=== PATIENT | male | born 2000 ===

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

== ENCOUNTER 2022-07-29 16:49 | Emergency (ER) | payer OTHER, SELFPAY ==
[2022-07-29 17:07] VITALS: BP 117/65; PULSE 70; RESP 18; TEMP 36.6; O2SAT 99; BMI 28.1
[2022-07-29 17:15] LABS: MANUAL DIFF FLAG NO
[2022-07-29 17:17] LABS: Basophils Absolute Auto 0.1 X10*3/uL (0.0-0.2); Basophils Percent Auto 0.8 % (0-2); Eosinophils Absolute Auto 0.5 X10*3/uL (0.0-0.4); Eosinophils Percent Auto 7.2 % (0-4); Hematocrit 44.1 % (42.0-52.0); Hemoglobin 14.9 g/dl (14.0-18.0); Imm Gran Abs Auto 0.01 X10*3/uL (0.00-0.03); Imm Gran Pct Auto 0.2 % (0.0-0.4); Lymphocytes Absolute Auto 2.1 X10*3/uL (1.2-4.9); Lymphocytes Percent Auto 34.4 % (20-40); Mean Corpuscular HGB Conc 33.8 g/dl (31.0-36.0); Mean Corpuscular Hemoglobin 29.7 pg (27.0-33.0); Monocytes Absolute Auto 0.4 X10*3/uL (0.1-1.2); Monocytes Percent Auto 6.4 % (2-11); Neutrophils Absolute Auto 3.2 x10*3/uL (2.0-8.3); Platelet Count 212 X10*3/uL (160-400); Red Blood Count 5.01 X10*6/uL (4.60-5.80); Red Cell Distribution Width 12.4 % (11.0-16.0); White Blood Count 6.2 X10*3/uL (4.8-10.8)
[2022-07-29 17:42] LABS: Alanine Aminotransferase 18 U/L (0-40); Albumin Level 4.5 g/dL (3.5-5.0); Alkaline Phosphatase 61 U/L (39-117); Anion Gap 13 (12-20); Aspartate Amino Transferase 21 U/L (5-37); Bilirubin Direct 0.3 mg/dL (0.0-0.5); Bilirubin Total 0.6 mg/dL (0.0-1.0); Blood Urea Nitrogen 14 mg/dL (9-16); Calcium 9.5 mg/dL (8.4-10.2); Carbon Dioxide 29 mmol/L (22-29); Chloride 105 mmol/L (96-108); Creatinine Clr Calc Pharmacy 98.7; Estimated Glomerular Filt Rate > 60; Glucose Random 111 mg/dL (60-115); Lipase 36 U/L (8-78); Sodium 143 mmol/L (135-145); Total Protein 7.1 g/dL (6.5-8.0)
--- NOTE | 2022-07-29 23:13 | ED_ITS ---
HPI - GI Bleed General Chief complaint: GI Bleed Stated complaint: ? rectal bleeding ? blood in stool Time Seen by Provider: 07/29/22 22:53 Source: patient Mode of arrival: ambulatory Limitations: no limitations History of Present Illness HPI Narrative: 22-year-old male who presents emergency department for evaluation of rectal bleeding. The patient states that after bowel movements he noticed dark red blood sometimes in the bowels and sometimes in the toilet bowl. He states that this is been going on for 1 week and happens after bowel movements only. He denies constipation. Denies any pain with his bowel movements. He states he does have some pressure in his tailbone region which is mild to moderate in intensity He states he has not been straining to have a bowel movement. He has a bowel movement once a day. He has not had any diarrhea, abdominal pain, fever, night sweats, weight loss. He does not have a history of hemorrhoids for lower GI bleeding. He is unaware of any family history of inflammatory bowel disease or GI cancers. MD complaint: blood streaked stool and gross hematochezia Onset (ago): week(s) (1) Pain Consistency: intermittent (Tailbone pressure) Severity: mild Relieving factors: none Exacerbating factors: none Treatments Prior to Arrival: none Related Data Allergies Allergy/AdvReac Type Severity Reaction Status Date / Time No Known Allergies Allergy Unverified 06/14/20 17:02 [No Known Allergies*] Review of Systems Review of Systems: Yes all other systems are reviewed and are negative [facility] Past Medical History [facility] Narrative: Past medical history: None. Past surgical history: None. Social history: He denies tobacco use. He states that he occasionally drinks alcohol. He smokes marijuana every 2-3 days. Social History Social History Advance Directives: No Advance Directives Information Provided: No Physical Exam Vital Signs: Vital Signs: Last Vital Signs Temp 97.9 F 07/29/22 17:07 Pulse 70 07/29/22 17:07 Resp 18 07/29/22 17:07 BP 117/65 07/29/22 17:07 Pulse Ox 99 07/29/22 17:07 O2 Del Method 07/29/22 17:07 BMI result Body Mass Index 28.1 Const: General: cooperative and no acute distress Orientation/consciousness: oriented to person and oriented to place Limitations: no limitations HEENT: Head: Yes normal to inspection, Yes normocephalic and Yes atraumatic Ears: external ears normal General nose exam: Normal external nose present Face and sinus: Yes normal facial exam Mouth: Normal oral and palatal mucosa present Throat: Yes posterior oropharynx normal Eyes: General: appearance normal, both eyes and all related structures Pupils: Equal, round and reactive pupils present Neck: Neck: Yes normal visual inspection, Yes no lymphadenopathy, Yes trachea midline and Yes supple Chest: Chest palpation & inspection: normal inspection of the chest and normal palpation of entire chest wall Resp: Effort & Inspection: normal respiratory effort and able to speak in complete sentences Auscultation: clear to auscultation bilaterally Cardio: Rate: regular rate Rhythm: regular rhythm Heart sounds: S1 normal heart sound present, S2 normal heart sound present and no murmurs GI: Other: Patient's external rectal exam revealed no anal fissures or external hemorrhoids noted, patient had no pain with exertion of finger into his rectum, there were no masses that I could feel on digital examination, there was no stool in the rectum and there was no blood in the rectum. Inspection: Yes normal to inspection Palpation (GI): Soft to palpation, nontender and no guarding Auscultation: normal bowel sounds : General: Yes no CVA tenderness Back/Spine/Pelvis: Back: no CVA tenderness Skin: General skin exam: no rashes or lesions noted Neuro: General: oriented to person and oriented to place Cranial nerves: Yes Equal, round and reactive pupils present Cognition (Neuro): normal cognition Extrem: General: Yes normal to inspection Psych: Appearance: grossly normal Speech and movement: Normal speech and movement present Affect: normal affect Course Course Course Narrative: 22-year-old male who presents emergency department for evaluation of rectal bleeding x1 week. The bleeding occurs with bowel movements and he states that occasionally has blood streaks stool as well as blood in the toilet bowl. Patient has had no abdominal pain but he does have a pressure in the tailbone area which is mild. He had no concerning systemic symptoms. Vital signs were normal. The patient's abdomen was normal, rectal exam was unremarkable. His vital signs were normal. The patient's CBC was normal. The patient's CMP was also normal. I am going to treat the patient for possible internal hemorrhoids with rectal suppositories, rectal cream and Metamucil. The patient will need to follow-up with his PCP and with GI for re-evaluation. He was given printed and verbal instructions and discharged home. MDM - GI Bleed Lab Data Result diagrams: 07/29/22 17:11 07/29/22 17:11 Labs: Lab Results 07/29/22 07/29/22 Range/Units 17:11 17:11 WBC 6.2 (4.8-10.8) X10*3/uL RBC 5.01 (4.60-5.80) X10*6/uL Hgb 14.9 (14.0-18.0) g/dl Hct 44.1 (42.0-52.0) % MCV 88.0 (80.0-98.0) fL MCH 29.7 (27.0-33.0) pg MCHC 33.8 (31.0-36.0) g/dl RDW 12.4 (11.0-16.0) % Plt Count 212 (160-400) X10*3/uL MPV 10.0 (9.4-12.4) fL Immature Gran % (Auto) 0.2 (0.0-0.4) % Neut % (Auto) 51.0 (45-73) % Lymph % (Auto) 34.4 (20-40) % [place] % (Auto) 6.4 (2-11) % Eos % (Auto) 7.2 H (0-4) % Baso % (Auto) 0.8 (0-2) % Lymph # (Auto) 2.1 (1.2-4.9) X10*3/uL [place] # (Auto) 0.4 (0.1-1.2) X10*3/uL Eos # (Auto) 0.5 H (0.0-0.4) X10*3/uL Baso # (Auto) 0.1 (0.0-0.2) X10*3/uL Abs Immat Gran (auto) 0.01 (0.00-0.03) X10*3/uL Absolute Neuts (auto) 3.2 (2.0-8.3) x10*3/uL Absolute Nucleated RBC 0.000 (0.0-0.012) X10*3/uL Nucleated RBC % (auto) 0.0 (0.0-0.2) /100WBC Sodium 143 (135-145) mmol/L Potassium 4.0 (3.3-5.1) mmol/L Chloride 105 (96-108) mmol/L Carbon Dioxide 29 (22-29) mmol/L Anion Gap 13 (12-20) BUN 14 (9-16) mg/dL Creatinine 1.21 (0.5-1.4) mg/dL Estim Creat Clear Calc 98.7 Estimated GFR > 60 Random Glucose 111 (60-115) mg/dL Calcium 9.5 (8.4-10.2) mg/dL Total Bilirubin 0.6 (0.0-1.0) mg/dL Direct Bilirubin 0.3 (0.0-0.5) mg/dL AST 21 (5-37) U/L ALT 18 (0-40) U/L Alkaline Phosphatase 61 (39-117) U/L Total Protein 7.1 (6.5-8.0) g/dL Albumin 4.5 (3.5-5.0) g/dL Lipase 36 (8-78) U/L Discharge Plan Discharge Clinical Impression: Painless rectal bleeding Patient Disposition: Home, Self-Care Instructions: Rectal Bleeding (ED) Additional Instructions: You had a complete blood count (CBC) which was normal with no anemia. Your hematocrit (percentage of red blood cells) was normal at 44%. Your comprehensive metabolic panel was normal. Your rectal exam revealed no rectal fissures or external hemorrhoids. The rectal digital exam did not reveal any masses and you did not have any stool or blood at this time. I am going to treat you like you have been internal hemorrhoid. Use preparation H suppositories twice a day and 1 suppository after each bowel movement for 2 weeks Use preparation H cream twice a day and 1 application after each bowel movement for 2 weeks Use Metamucil fiber supplement powder, 1 tsp in 8 oz of water daily for 2 weeks Follow-up with your doctor in 2 days. Our on-call director of family service center is Dr. Gonzalez. Call his office to try to make a follow-up appointment in 2 weeks, you may need a referral from your primary care doctor. Please return to the emergency department if your symptoms get worse or if you develop any symptoms that are concerning to you. Referrals: Gonzalez,Tuyyab, MD [Physician] - 2 weeks (Rectal bleeding x1 week after bowel movement, rectal exam is unremarkable, H&H 14.9 and 44.1, CMP normal.)
== END 2022-07-29 23:34 | disposition home or self-care (01) ==
PROVIDERS: Emergency Provider Emergency Medicine Emergency Medical Services; PCP Pediatrics
DX: K62.5 Hemorrhage of anus and rectum (principal)
CPT/HCPCS: 36415; 80053; 82248; 83690; 85025; 99282; 99283

== ENCOUNTER 2023-01-11 14:22 | Emergency (ER) | payer OTHER, SELFPAY ==
[2023-01-11 14:44] VITALS: BP 141/85; PULSE 89; RESP 16; TEMP 37.2; O2SAT 99; BMI 26.2
--- NOTE | 2023-01-11 14:47 | ED_ITS ---
HPI - General Adult General Chief complaint: Allergic Reaction <CECILIA Magaña Last Filed: 01/11/23 14:50> Stated complaint: allergic reaction? <CECILIA Magaña - Last Filed: 01/11/23 14:50> Time Seen by Provider: 01/11/23 15:34 <CECILIA Magaña Last Filed: 01/11/23 14:50> Source: patient <CECILIA Matias - Last Filed: 01/11/23 18:34> Mode of arrival: ambulatory <CECILIA Matias - Last Filed: 01/11/23 18:34> History of Present Illness HPI narrative: 22-year-old male with no significant past medical history presenting to the ED complaining of nasal congestion/rhinorrhea, sinus pressure, facial puffiness and tongue pruritis w/ noted white lesion x3-4 days. Reports tried to scrape off at home but was not successful. Has been taking Cetirizine without relief. Denies fever, chills, CP/SOB, oral swelling/difficulty inability to swallow, new exposures, travel, new sexual partners or concern for STI. <CECILIA Matias - Last Filed: 01/11/23 18:34> Onset (ago): day(s) <CECILIA Matias - Last Filed: 01/11/23 18:34> Related Data Home medications: Previous Rx's Medication Instructions Recorded amoxicillin 500 mg capsule 500 mg PO BID 7 days #14 caps 01/11/23 diphenhydramine HCl 25 mg capsule 25 mg PO TID PRN allergic reaction 01/11/23 (Benadryl) #14 caps <CECILIA Magaña - Last Filed: 01/11/23 14:50> Allergies/adverse reactions: Allergies Allergy/AdvReac Type Severity Reaction Status Date / Time No Known Allergies Allergy Verified 01/11/23 14:48 [No Known Allergies*] <CECILIA Magaña Last Filed: 01/11/23 14:50> Review of Systems Review of Systems: Constitutional: No Fever, No Chills ENT/Mouth: No Ear Pain, + Nasal Congestion, + Sinus Pain, No Hoarseness, No sore throat, + Rhinorrhea, No Swallowing Difficulty Cardiovascular: No Chest Pain, No SOB Respiratory: No Cough, No Sputum, No Wheezing Gastrointestinal: No Nausea, No Vomiting, No Diarrhea, No Constipation, No Ab dominal pain Musculoskeletal: No joint pain, No Myalgias, No Joint Swelling Skin: + Skin Lesions, No rash Neuro: No Weakness, No Numbness, No Paresthesias <CECILIA Matias Last Filed: 01/11/23 18:34> Yes all other systems are reviewed and are negative <CECILIA Matias Last Filed: 01/11/23 18:34> Constitutional: Constitutional: Reports as per HPI <CECILIA Matias Last Filed: 01/11/23 18:34> [facility] Past Medical History Attestation statement: The following information was validated with the patient. <CECILIA Matias Last Filed: 01/11/23 18:34> Social History Social History: Social History Advance Directives: No Advance Directives Information Provided: No <CECILIA Magaña Last Filed: 01/11/23 14:50> Physical Exam ED Vital Signs: Vital Signs - 24 hr 01/11/23 14:44 Temperature 98.9 F Pulse Rate 89 Respiratory Rate 16 Blood Pressure 141/85 H Pulse Oximetry 99 Oxygen Delivery Method Room Air BMI result Body Mass Index 26.2 <CECILIA Magaña Last Filed: 01/11/23 14:50> Vital Signs - 24 hr 01/11/23 14:44 Temperature 98.9 F Pulse Rate 89 Respiratory Rate 16 Blood Pressure 141/85 H Pulse Oximetry 99 Oxygen Delivery Method Room Air BMI result Body Mass Index 26.2 <CECILIA Matias Last Filed: 01/11/23 18:34> Const General: cooperative, healthy appearing, no acute distress, alert and awake <CECILIA Matias Last Filed: 01/11/23 18:34> Orientation/consciousness: patient oriented x3 <CECILIA Matias Last Filed: 01/11/23 18:34> Limitations: no limitations <CECILIA Matias Last Filed: 01/11/23 18:34> HENMT Head: Yes normal to inspection and Yes atraumatic <Karuna Booker PA - Last Filed: 01/11/23 18:34> Ears: hearing grossly normal bilaterally, external ears normal, TM's normal bilaterally and mastoids normal <Karuna Booker PA - Last Filed: 01/11/23 18:34> General nose exam: Normal external nose present <Karuna Booker PA - Last Filed: 01/11/23 18:34> Face and sinus: Yes normal facial exam and Yes sinus tenderness (Ethmoid) <Karuna Booker PA - Last Filed: 01/11/23 18:34> Mouth: tongue abnormal with lesion noted plaque (white); no ulcers and no vesicles <Karuna Booker PA - Last Filed: 01/11/23 18:34> Throat: Yes posterior oropharynx normal, Yes tonsils normal, Yes uvula midline and No peritonsillar mass <Karuna Booker MI - Last Filed: 01/11/23 18:34> Eyes General: appearance normal, both eyes and all related structures <CECILIA Matias - Last Filed: 01/11/23 18:34> EOM: EOMs intact bilaterally <Karuna Booker PA - Last Filed: 01/11/23 18:34> Neck Neck: Yes normal visual inspection, Yes no meningeal signs and No anterior neck swelling <Karuna Booker PA - Last Filed: 01/11/23 18:34> Resp Effort & Inspection: normal respiratory effort and no respiratory distress <CECILIA Matias Last Filed: 01/11/23 18:34> Auscultation: clear to auscultation bilaterally, no crackles, no rales and no rhonchi <Karuna Booker PA Last Filed: 01/11/23 18:34> Cardio Rate: regular rate <CECILIA Matias - Last Filed: 01/11/23 18:34> Heart sounds: S1 normal heart sound present and S2 normal heart sound present <CECILIA Matias - Last Filed: 01/11/23 18:34> Skin Rashes: no rashes <CECILIA Matias - Last Filed: 01/11/23 18:34> Wounds: no wounds <CECILIA Matias Last Filed: 01/11/23 18:34> Neuro General: patient oriented x3, tone normal and no meningeal signs <CECILIA Matias Last Filed: 01/11/23 18:34> Gait exam (Neuro): Normal gait present <CECILIA Matias Last Filed: 01/11/23 18:34> Extrem General: Yes normal to inspection <CECILIA Matias Last Filed: 01/11/23 18:34> Course Course Course Narrative: RME-14:50PM - 22yoM who is a smoker and has a past medical history of seasonal allergies currently on cetirizine who is presenting to the ER with complaints of 3 days of a white lesion to his tongue that he is unable to scrape off and it is painful. Denies any family history of cancers. Denies any other medications that he is taking at this time. Denies any other symptoms complaints or concerns other than his seasonal allergies nasal congestion/rhinorrhea. On Exam Patient has the white lesion to the tongue unable to be removed no other lesions to the tongue. Plan: Patient to be seen in [facility] for further evaluation treatment. <CECILIA Magaña - Last Filed: 01/11/23 14:50> RME-14:50PM - 22yoM who is a smoker and has a past medical history of seasonal allergies currently on cetirizine who is presenting to the ER with complaints of 3 days of a white lesion to his tongue that he is unable to scrape off and it is painful. Denies any family history of cancers. Denies any other medications that he is taking at this time. Denies any other symptoms complaints or concerns other than his seasonal allergies nasal congestion/rhinorrhea. On Exam Patient has the white lesion to the tongue unable to be removed no other lesions to the tongue. Plan: Patient to be seen in [facility] for further evaluation treatment. -1720--COVID / flu negative Results discussed with patient including worrisome signs and symptoms and strict return precautions, and when to return to the emergency department. They verbalized understanding and feel safe for discharge at this time. <CECILIA Matias Last Filed: 01/11/23 18:34> Medications Administered Discontinued Medications Generic Name Dose Route Start Last Admin Trade Name Freq PRN Reason Stop Dose Admin Diphenhydramine HCl 25 mg 01/11/23 17:16 01/11/23 17:33 Diphenhydramine Hcl 25 Mg Capsule PO 01/11/23 17:17 25 mg ONCE ONE Administration <CECILIA Magaña - Last Filed: 01/11/23 14:50> Medications Administered Discontinued Medications Generic Name Dose Route Start Last Admin Trade Name Sahil PRN Reason Stop Dose Admin Diphenhydramine HCl 25 mg 01/11/23 17:16 01/11/23 17:33 Diphenhydramine Hcl 25 Mg Capsule PO 01/11/23 17:17 25 mg ONCE ONE Administration <CECILIA Matias - Last Filed: 01/11/23 18:34> Medical Decision Making Medical Decision Making MDM Narrative: 22-year-old male with no significant past medical history presenting to the ED complaining of nasal congestion/rhinorrhea, sinus pressure, facial puffiness and tongue pruritis w/ noted white lesion x3-4 days. On exam vital signs stable, NAD, nontoxic appearing, lungs CTA, + ethmoid sinus tenderness noted, white plaque-like lesion noted to tongue, unable to scrape off, no bleeding. Posterior oropharynx WNL, uvula midline, talking in complete sentences. No rash. Concern for ? Possible allergic reaction vs sinusitis vs viral syndrome. No evidence of anaphylaxis. Low suspicion for herpes, no evidence of chancre, lower suspicion for yeast Plan: COVID/flu testing, herpes culture, yeast culture Please refer to course for remaining clinical decision making, interpretation of labs/imaging results, and discussions with consultants and/or family members. <CECILIA Matias - Last Filed: 01/11/23 18:34> Differential Diagnosis Differential Diagnoses: The differential diagnosis associated with the presentation includes <CECILIA Matias Last Filed: 01/11/23 18:34> As above <CECILIA Matias Last Filed: 01/11/23 18:34> Admission/Observation Consideration of admission/observation: Escalation of care including admission/observation considered <CECILIA Matias Last Filed: 01/11/23 18:34> Lab Data [facility] Lab Attestation statement: I reviewed the patient's lab results. <CECILIA Matias Last Filed: 04/16/23 18:34> Labs: Lab Results 01/11/23 01/11/23 Range/Units 16:37 16:37 COVID-19 (JASWANT) Negative (Negative) COVID-19 Clin Com See Note Influenza Type A (THEO) Negative (Negative) Influenza Type B (THEO) Negative (Negative) Influenza A & B Note See Note <CECILIA Magaña - Last Filed: 01/11/23 14:50> Lab Results 01/11/23 01/11/23 Range/Units 16:37 16:37 COVID-19 (JASWANT) Negative (Negative) COVID-19 Clin Com See Note Influenza Type A (THEO) Negative (Negative) Influenza Type B (THEO) Negative (Negative) Influenza A & B Note See Note <CECILIA Matias - Last Filed: 01/11/23 18:34> Radiology Impression Discussion of test interpretation with radiology: I have reviewed the radiologist's reading. <CECILIA Matias - Last Filed: 01/11/23 18:34> External Record Review External record reviewed: Inpatient record, Office record, Outpatient record, Prior outpatient labs, Prior outpatient radiology, Primary care record and Outside ED record <CECILIA Matias - Last Filed: 01/11/23 18:34> Discharge Plan Discharge Clinical Impression: Sinusitis, Tongue lesion <CECILIA Magaña - Last Filed: 01/11/23 14:50> Patient Disposition: Home, Self-Care <CECILIA Magaña - Last Filed: 01/11/23 14:50> Instructions: Sinusitis (ED) <CECILIA Magaña - Last Filed: 01/11/23 14:50> Additional Instructions: You tested negative for COVID and flu. We tested you for herpes as well as yeast. Please follow-up with ear nose throat specialist for further testing of your tongue lesion Continue taking Zyrtec. Amoxicillin will help with her sinusitis. Take Benadryl as needed for tongue itching if you develop any throat swelling, difficulty breathing/swallowing return to the ED immediately <CECILIA Magaña - Last Filed: 01/11/23 14:50> Prescriptions: New amoxicillin 500 mg capsule 500 mg PO BID 7 Days Qty: 14 0RF diphenhydramine HCl [Benadryl] 25 mg capsule 25 mg PO TID PRN (Reason: allergic reaction) Qty: 14 0RF <CECILIA Magaña - Last Filed: 01/11/23 14:50> Referrals: Isrrael Moran MD [Primary Care Provider] - 2 days Ryan Beltran [Physician] - <CECILIA Magaña - Last Filed: 01/11/23 14:50> Interventions: ED Discharge Assessment Last Done: 01/11/23 17:35 <CECILIA Magaña - Last Filed: 01/11/23 14:50> Discharge Date/Time: 01/11/23 17:36 <CECILIA Magaña - Last Filed: 01/11/23 14:50>
[2023-01-11 17:07] LABS: COVID-19 Test Negative (Negative); IDNOW Serial# BCCEAD1C
[2023-01-11 17:08] LABS: IDNOW Serial# 9DB6401D; Influenza A Negative (Negative); Influenza B2 Negative (Negative)
[2023-01-11] MEDS: diphenhydrAMINE HCL 25 MG CAPSULE PO (17:33)
== END 2023-01-11 17:36 | disposition home or self-care (01) ==
PROVIDERS: Physician Assistant; Emergency Provider Internal Medicine; PCP Pediatrics
DX: J32.9 Chronic sinusitis, unspecified (principal); L50.0 Allergic urticaria; K13.70 Unspecified lesions of oral mucosa; Z20.822 Contact with and (suspected) exposure to COVID-19; Z20.828 Contact with and (suspected) exposure to other viral communicable diseases; Z79.899 Other long term (current) drug therapy
CPT/HCPCS: 87255; 87480; 87502; 87510; 87635; 87660; 99282; 99283

== ENCOUNTER 2024-05-21 18:21 | Emergency (ER) | payer OTHER, SELFPAY ==
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
[2024-05-21 18:30] VITALS: BP 112/90; BP 122/77; PULSE 78; PULSE 85; RESP 16; TEMP 37; O2SAT 98; O2SAT 99; BMI 26.4
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
[2024-05-21] MEDS: Acetaminophen 325 MG TABLET 650 MG PO (20:09)
[2024-05-22 00:12] VITALS: BP 118/75; PULSE 70; RESP 16; TEMP 36.9; O2SAT 98
[2024-05-22 00:14] VITALS: BP 118/75; PULSE 70; RESP 16; TEMP 36.9; O2SAT 98
== END 2024-05-22 00:12 | disposition home or self-care (01) ==
PROVIDERS: Emergency Provider Emergency Medicine Emergency Medical Services; PCP Pediatrics
DX: S16.1XXA Strain of muscle, fascia and tendon at neck level, initial encounter (principal); V43.52XA Car driver injured in collision with other type car in traffic accident, initial encounter; Y93.89 Activity, other specified; Y92.414 Local residential or business street as the place of occurrence of the external cause; Y99.9 Unspecified external cause status
CPT/HCPCS: 70450; 72125; 99284

== ENCOUNTER 2024-07-10 22:13 | Emergency (ER) | payer SELFPAY ==
[2024-07-10 22:20] VITALS: BP 133/73; PULSE 90; RESP 16; TEMP 36.8; O2SAT 97; BMI 28.2
[2024-07-11 01:22] VITALS: BP 130/82; PULSE 65; RESP 16; TEMP 36.9; O2SAT 97
--- NOTE | 2024-07-11 03:03 | PC.NURSE ---
Pt ambulated to the main ER approaching this RN to request pain medication. He reports the laceration is burning and requested ibuprofen
[2024-07-11] MEDS: Ibuprofen 800 MG TABLET PO (03:29)
[2024-07-11 05:33] VITALS: BP 131/60; PULSE 90; RESP 16; TEMP 36.6; O2SAT 99
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
[2024-07-11 06:04] VITALS: BP 131/60; PULSE 90; RESP 16; TEMP 36.6; O2SAT 99
[2024-07-11] MEDS: Amoxicillin/Potassium Clav 875 MG TABLET PO (06:05)
[2024-07-11] MEDS: Lidocaine HCl 1 % MPF 5 ML VIAL INFILTRATI (06:09)
== END 2024-07-11 06:10 | disposition home or self-care (01) ==
PROVIDERS: Emergency Provider Internal Medicine
DX: S01.511A Laceration without foreign body of lip, initial encounter (principal); Y04.2XXA Assault by strike against or bumped into by another person, initial encounter; Y93.89 Activity, other specified; Y92.89 Other specified places as the place of occurrence of the external cause; Y99.8 Other external cause status
CPT/HCPCS: 12011; 99283; 99284; J2003